=== PATIENT | female | born 1995 | race Caucasian/White ===

== ENCOUNTER 2019-08-20 12:33 | Emergency (ER) | payer SELFPAY ==
[2019-08-20 12:48] VITALS: BP 148/92; PULSE 92; RESP 16; TEMP 36.4; O2SAT 97
--- NOTE | 2019-08-20 12:56 | ED.URI ---
HPI - URI/Sore Throat General Chief Complaint: Upper Respiratory Infection Stated Complaint: cough and sore throat Time Seen by Provider: 08/20/19 13:04 Source: patient and RN notes reviewed History of Present Illness HPI Narrative: Patient is a 24-year-old female presents the urgent care with complaints of sore throat, headache, cough. Patient states her symptoms started 5 days ago and last night she developed a left ear pain. Patient denies any fever, chills, nausea, vomiting. Patient states that she is used Tylenol Cold and flu, Robitussin, Benadryl. No other acute complaints. No acute distress noted. Patient had a plan of care. Related Data Home Medications Medication Instructions Recorded Confirmed No Home Medications 08/20/19 08/20/19 Allergies Allergy/AdvReac Type Severity Reaction Status Date / Time No Known Allergies Allergy Unknown Verified 08/20/19 12:57 Review of Systems Review of Systems: Narrative: CONSTITUTIONAL: Denies fever, chills, or sweats. EYES: Denies visual changes, redness, or discharge. ENT: Reports of left otalgia, congestion, sore throat CARDIOVASCULAR: Denies chest pain, palpitations, or edema. RESPIRATORY: Reports of nonproductive cough without dyspnea GASTROINTESTINAL: Denies abdominal pain, nausea, vomiting, or diarrhea. GENITOURINARY: Denies dysuria or hematuria. SKIN: Denies rash or itching. MUSCULOSKELETAL: Denies back pain, joint pain, or myalgia. NEUROLOGIC: Reports of headaches PMFSH Comments At the time of my signature, I reviewed and agree with the nursing past medical, surgical, social, and family history. There is no relevant family history pertinent to the patient complaint. Exam Narrative: Exam Narrative: GENERAL: This is a well-nourished, well-developed patient, in no apparent distress. Poor hygiene HEAD: normocephalic, atraumatic. EYES: PERRL. Sclera clear/white. Vision is grossly intact. EARS: External ears normal, auditory canals clear and without drainage, TMs normal without perforation. Hearing grossly intact. NOSE: External nose normal with no obvious nasal discharge, nares without redness, no rhinorrhea. THROAT: Mucous membranes moist, mild erythema noted posterior pharynx with moderate postnasal drainage. NECK: Neck supple, non-tender without lymphadenopathy, masses or thyromegaly. CARDIOVASCULAR: Regular rate and rhythm without murmurs, gallops, or rubs. RESPIRATORY: Slight expiratory wheeze to left lower lobe, otherwise clear SKIN: warm, intact with no suspicious lesions or rash, good texture and turgor. NEURO: awake, alert, and oriented to person, place and time. There were no obvious focal neurologic abnormalities. EXTREMITIES: No clubbing, cyanosis, or edema. Course Vital Signs Vital signs: Vital Signs Temperature 97.5 F L 08/20/19 12:48 Pulse Rate 92 08/20/19 12:48 Respiratory Rate 16 08/20/19 12:48 Blood Pressure 148/92 H 08/20/19 12:48 Pulse Oximetry 97 08/20/19 12:48 Temperature 97.5 F L 08/20/19 12:48 Pulse Rate 92 08/20/19 12:48 Respiratory Rate 16 08/20/19 12:48 Blood Pressure 148/92 H 08/20/19 12:48 Pulse Oximetry 97 08/20/19 12:48 Reviewed?patient is informed that they may have pre-hypertension or hypertension based on a blood pressure reading in the department. I recommend the patient call the primary care provider listed on their discharge instructions or a physician of their choice this week to arrange follow-up for further evaluation of possible pre-hypertension or hypertension. MDM - URI/Sore Throat MDM Narrative Medical decision making narrative: Reviewed lab results with the patient. She is aware that strep swab was negative. Educated her on culture we will call within 72 hours if culture is positive and antibiotics are necessary. Advised patient to use Claritin and Flonase [id number] for postnasal drainage and symptom relief. Use Tylenol/ibuprofen as needed. Increase fluids and rest. Use humidifie
== END 2019-08-20 13:14 | disposition home or self-care (01) ==
PROVIDERS: Emergency Provider Nurse Practitioner Family; PCP Family Medicine
DX: J06.9 Acute upper respiratory infection, unspecified (principal)
CPT/HCPCS: 87081; 87880; 99213; G0463

== ENCOUNTER 2021-10-04 13:42 | Emergency (ER) | payer OTHER, SELFPAY ==
[2021-10-04 13:50] VITALS: BP 170/99; PULSE 98; RESP 14; TEMP 36.8; O2SAT 98
--- NOTE | 2021-10-04 13:53 | ED.URI ---
HPI - URI/Sore Throat General Chief Complaint: Upper Respiratory Infection Stated Complaint: Sore Throat/Congestion/Vomiting Time Seen by Provider: 10/04/21 13:54 Source: patient, RN notes reviewed and old records reviewed Mode of arrival: ambulatory Limitations: no limitations History of Present Illness HPI Narrative: 26 year old female who presents to [facility] care with complaints of 2 day history of sore throat with congestion and stuffy nose. Patient states that she also has some chills with no fever and some body aches. She reports that she has had some nausea and vomiting with diarrhea, denies any abdominal pain She states that she last vomited at 0400 t has shi several diarrhea stools today. She reports that she has been drinking well but not eating due to nausea. Patient has had COVID vaccinations X2 and also had COVID in June of 2021, has not had flu shot. MD elicited complaint: sore throat, nasal congestion and other (NVD) Onset (ago): day(s) (2) Able to tolerate fluids by mouth: Yes Exacerbating factors: swallowing Treatments prior to arrival: ibuprofen Related Data Allergies Allergy/AdvReac Type Severity Reaction Status Date / Time No Known Allergies Allergy Unknown Verified 10/04/21 13:57 Review of Systems Review of Systems: CONSTITUTIONAL: Denies fever,states some chills, no sweats. EYES: Denies visual changes, redness, or discharge. ENT: reports some rhinorrhea, congestion, sore throat, no otalgia. CARDIOVASCULAR: Denies chest pain, palpitations, or edema. RESPIRATORY: Denies cough or dyspnea. GASTROINTESTINAL: Denies abdominal pain, positive for nausea, vomiting, or diarrhea. GENITOURINARY: Denies dysuria or hematuria. SKIN: Denies rash or itching. MUSCULOSKELETAL: Denies back pain, joint pain, some body aches NEUROLOGIC: Denies headache, numbness, or weakness. PSYCHIATRIC:Positive for history of anxiety or depression. All systems reviewed & are unremarkable except as noted in HPI and below PMFSH Past Medical History Medical History (Updated 10/04/21 @ 21:21 by Janeth Flannery NP) Anxiety and depression Hyperprolactinemia Surgical History Surgical History (Updated 10/04/21 @ 14:03 by Janeth Flannery NP) Hx of cholecystectomy Social History Social History (Updated 03/16/22 @ 21:21 by Janeth Flannery NP) Smoking status: Never smoker Alcohol intake: current Alcohol use details: social Substance use type: does not use Living arrangements: with family Gender identity (if verbalized by the patient): Female Comments At time of signature, agree with nursing past medical, surgical, social and family history. There is no relevant family history pertinent to the presenting complaint Exam Narrative: GENERAL: Well-appearing, well-nourished,obese and in no acute distress. HEAD: Normocephalic, atraumatic. EYES: PERRLA and EOMI. ENT: Nares mild redness with clear rhinorrhea no epistaxis. Mucous membranes moist.TM's normal with good light reflex, throat red with no lesions or exudates, no tonsil enlargement noted. post nasal drainage noted NECK: Supple.No lymphadenopathy CHEST: Clear to auscultation. No respiratory distress.no tachypnea, SAO2 98% on room air HEART: Regular rate and rhythm. No murmur heard. Normal peripheral pulses. ABDOMEN: Soft, nontender, nondistended, normal active bowel sounds. some nausea vomiting and diarrhea EXTREMITIES: Normal range of motion. No edema. SKIN: Warm, dry, no rash. NEURO: No focal deficits. Alert and oriented x3. Course Course Level of Care: Express Care Visit Vital Signs Vital signs: Vital Signs Temperature 36.8 C 10/04/21 13:50 Pulse Rate 98 10/04/21 13:50 Respiratory Rate 14 10/04/21 13:50 Blood Pressure 170/99 H 10/04/21 13:50 Pulse Oximetry 98 10/04/21 13:50 Temperature 36.8 C 10/04/21 13:50 Pulse Rate 98 10/04/21 13:50 Respiratory Rate 14 10/04/21 13:50 Blood Pressure 170/99 H 10/04/21 13:50 Pulse Oximetr
== END 2021-10-04 14:44 | disposition home or self-care (01) ==
PROVIDERS: Emergency Provider Registered Nurse
DX: K52.9 Noninfective gastroenteritis and colitis, unspecified (principal); J06.9 Acute upper respiratory infection, unspecified
CPT/HCPCS: 87081; 87804; 87880; 99213; G0463

== ENCOUNTER 2022-02-28 09:56 | Outpatient (CLI) | payer OTHER, SELFPAY ==
[2022-02-28 10:21] LABS: Basophils Percent Auto 0.1 % (0.2-1.2); Eosinophils Absolute Auto 0.2 K/mm3 (0-0.3); Eosinophils Percent Auto 2.1 % (0-4.4); Hematocrit 41.5 % (37.0-47.0); Hemoglobin 13.4 g/dL (12.0-15.0); Immature Granulocyte Absolute 0.05 K/mm3 (0.00-0.031); Immature Granulocyte Percent A 0.5 % (0-0.5); Lymphocytes Absolute Auto 2.58 K/mm3 (0.9-3.2); Lymphocytes Percent Auto 26.2 % (18.3-44.2); Mean Corpuscular HGB Conc 32.3 g/dl (32-36); Mean Corpuscular Hemoglobin 29.8 pg (26-34); Mean Corpuscular Volume 92.2 fl (80-100); Mean Platelet Volume 8.9 fl (7.4-10.4); Monocytes Absolute Auto 0.4 K/mm3 (0.1-0.6); Monocytes Percent Auto 4.2 % (2.6-8.5); Neutrophils Absolute Auto 6.6 K/mm3 (1.3-6.7); Neutrophils Percent Auto 66.9 % (45.5-73.1); Platelet Count Result 234 k/mm3 (150-375); Red Cell Distribution Width 13.6 % (11.5-14.5); White Blood Count 9.9 K/mm3 (4.5-10.0)
[2022-02-28 10:31] LABS: Cholesterol 225 mg/dL (0-200); HDL Direct 25 mg/dL; Triglycerides 235 mg/dL (<150)
[2022-02-28 10:38] LABS: Hemoglobin A1C 5.8 % (<5.7)
[2022-02-28 10:42] LABS: LDL Cholesterol Direct 157 mg/dL
[2022-02-28 10:50] LABS: Beta HCG Quantitative < 2.39 mIU/ML
[2022-03-03 07:47] LABS: Progesterone 0.3 ng/mL (***); Prolactin 55.4 ng/mL (***)
[2022-03-03 13:57] LABS: DHEA-Sulfate 122 mcg/dL (18-391)
[2022-03-05 17:33] LABS: Testosterone Total 12 ng/dL (2-45)
[2022-03-09 23:12] LABS: Estradiol, Ultrasensitive 15 pg/mL
== END 2022-02-28 09:57 | disposition home or self-care (01) ==
LOC: ANHLAB 10:01
PROVIDERS: Visit Provider Obstetrics & Gynecology
DX: L68.0 Hirsutism (principal); N92.6 Irregular menstruation, unspecified
CPT/HCPCS: 36415; 80061; 82627; 82670; 83036; 83498; 84144; 84146; 84402; 84403; 84702; 85025

== ENCOUNTER → 2022-03-13 12:45 | Outpatient (CLI) | payer OTHER, SELFPAY ==
--- NOTE | ~2022-03-13 | US_ITS ---
EXAMINATION: US pelvic complete w TV DATE: 03/13/2022 13:29 INDICATION: Left ovarian cyst TECHNIQUE: Multiple transabdominal and endovaginal sonographic images of the pelvis were obtained. COMPARISON: None. FINDINGS: The uterus measures 8.7 x 3.7 x 4.6 cm. The endometrial complex measures 5 mm. The right ov damien measures 5.4 x 3.0 x 5.3 cm. There is a 2.5 cm simple cyst of the right ovary. There is a 2.5 cm hypoechoic lesion of the right ovary. The left ovary measures 3.5 x 2.5 x 2.5 cm. There is a 2.5 cm h ypoechoic lesion of the left ovary. There is normal vascular flow in the ovaries. There is no free fl uid in the pelvis. IMPRESSION: 1. Probably benign bilateral ovarian lesions. Follow-up ultrasound in 8-12 weeks is recommended. Reviewed, dictated and finalized at location B. IMPRESSION: 1. Probably benign bilateral ovarian lesions. Follow-up ultrasound in 8-12 week s is recommended.
== END ==
LOC: EXPGOSHRAD 12:50
PROVIDERS: Visit Provider Obstetrics & Gynecology
DX: N83.292 Other ovarian cyst, left side (principal)
CPT/HCPCS: 76830; 76856

== ENCOUNTER 2022-04-27 15:17 | Emergency (ER) | payer OTHER, SELFPAY ==
--- NOTE | 2022-04-27 15:21 | ED.URI ---
HPI - URI/Sore Throat General Chief Complaint: Upper Respiratory Infection Stated Complaint: Sore Throat/Fever Time Seen by Provider: 04/27/22 15:21 Source: patient and RN notes reviewed History of Present Illness HPI Narrative: Patient is a 27-year-old female who presents the urgent care with complaints of sore throat and fever for 1 week. Patient states that she has been taking Tylenol and her son diagnosed with strep this week. Denies any cough or other upper respiratory complaints. Denies of any nausea or vomiting. No other acute complaints. No acute distress noted. Patient aware of the plan of care. Some parts of this dictation were generated by voice recognition software and may contain typographical and/or grammatical inaccuracies. Related Data Home Medications Medication Instructions Recorded Confirmed lisinopril 10 mg tablet 10 mg PO DAILY 02/20/22 sertraline 50 mg tablet (Zoloft) 50 mg PO DAILY 02/20/22 Allergies Allergy/AdvReac Type Severity Reaction Status Date / Time No Known Allergies Allergy Unknown Verified 04/27/22 15:39 Review of Systems Review of Systems: CONSTITUTIONAL: Reports a fever EYES: Denies visual changes, redness, or discharge. ENT: Denies rhinorrhea, congestion, otalgia. Reports of sore throat CARDIOVASCULAR: Denies chest pain, palpitations, or edema. RESPIRATORY: Denies cough or dyspnea. GASTROINTESTINAL: Denies abdominal pain, nausea, vomiting, or diarrhea. GENITOURINARY: Denies dysuria or hematuria. SKIN: Denies rash or itching. MUSCULOSKELETAL: Denies back pain, joint pain, or myalgia. NEUROLOGIC: Denies headache, numbness, or weakness. All other systems reviewed are negative, except as documented in HPI. [facility] Past Medical History Medical History Anxiety and depression Hyperprolactinemia Surgical History Surgical History Hx of cholecystectomy Social History Social History (Updated 02/20/22 @ 13:59 by Maira Chance MA) Smoking status: Never smoker Alcohol intake: never Substance use: never Substance use type: does not use Gender identity (if verbalized by the patient): Female Sexual Orientation (if Verbalized by the Patient): Straight or Heterosexual Comments At the time of my signature, I reviewed and agree with the nursing past medical, surgical, social, and family history. There is no relevant family history pertinent to the patient complaint. Exam Narrative: GENERAL: This is a well-nourished, well-developed patient, in no apparent distress. HEAD: normocephalic, atraumatic. EYES: PERRL. Sclera clear/white. Vision is grossly intact. EARS: External ears normal, auditory canals clear and without drainage, TMs normal without perforation. Hearing grossly intact. NOSE: External nose normal with no obvious nasal discharge, nares without redness, no rhinorrhea. THROAT: Mucous membranes moist, moderate erythema noted posterior pharynx without tonsillar edema or exudate. Moderate postnasal drainage NECK: Neck supple, non-tender without lymphadenopathy CARDIOVASCULAR: Regular rate and rhythm without murmurs, gallops, or rubs. RESPIRATORY: Clear to auscultation. Breath sounds equal bilaterally. No wheezes, rales, or rhonchi. SKIN: warm, intact with no suspicious lesions or rash, good texture and turgor. NEURO: awake, alert, and oriented to person, place and time. There were no obvious focal neurologic abnormalities. EXTREMITIES: No clubbing, cyanosis, or edema. Course Course Level of Care: Express Care Visit Vital Signs Vital signs: Vital Signs Temperature 97.5 F L 04/27/22 15:25 Pulse Rate 94 04/27/22 15:25 Respiratory Rate 18 04/27/22 15:25 Blood Pressure 173/81 H 04/27/22 15:25 Pulse Oximetry 98 04/27/22 15:25 Oxygen Delivery Room Air 04/27/22 15:25 Temperature 97.5 F L 04/27/22 15:25 Pulse Rate 94 04/27/22 15:25 Re
[2022-04-27 15:25] VITALS: BP 173/81; PULSE 94; RESP 18; TEMP 36.4; O2SAT 98
== END 2022-04-27 15:50 | disposition home or self-care (01) ==
PROVIDERS: Emergency Provider Nurse Practitioner Family
DX: J02.9 Acute pharyngitis, unspecified (principal); E22.1 Hyperprolactinemia; F41.9 Anxiety disorder, unspecified; F32.A Depression, unspecified
CPT/HCPCS: 87081; 87880; 99213; G0463

== ENCOUNTER 2023-02-04 07:47 | Outpatient (CLI) | payer OTHER, SELFPAY ==
[2023-02-04 08:40] LABS: Basophils Percent Auto 0.3 % (0.2-1.2); Eosinophils Absolute Auto 0.2 K/mm3 (0-0.3); Eosinophils Percent Auto 1.7 % (0-4.4); Hematocrit 40.2 % (37.0-47.0); Immature Granulocyte Absolute 0.02 K/mm3 (0.00-0.031); Immature Granulocyte Percent A 0.2 % (0-0.5); Lymphocytes Absolute Auto 2.26 K/mm3 (0.9-3.2); Lymphocytes Percent Auto 26.3 % (18.3-44.2); Mean Corpuscular HGB Conc 32.3 g/dl (32-36); Mean Corpuscular Volume 89.5 fl (80-100); Mean Platelet Volume 8.7 fl (7.4-10.4); Monocytes Absolute Auto 0.4 K/mm3 (0.1-0.6); Monocytes Percent Auto 4.5 % (2.6-8.5); Neutrophils Absolute Auto 5.7 K/mm3 (1.3-6.7); Platelet Count Result 226 k/mm3 (150-375); Red Blood Count 4.49 M/mm3 (4.2-5.4); Red Cell Distribution Width 13.9 % (11.5-14.5); White Blood Count 8.6 K/mm3 (4.5-10.0)
[2023-02-04 08:49] LABS: Cholesterol 228 mg/dL (0-200); HDL Direct 29 mg/dL; Triglycerides 358 mg/dL (<150)
[2023-02-04 08:51] LABS: Hemoglobin A1C 5.6 % (<5.7)
[2023-02-04 09:02] LABS: LDL Cholesterol Direct 135 mg/dL
[2023-02-04 09:04] LABS: Iron 82 ug/dL (37-170)
[2023-02-04 09:06] LABS: Beta HCG Quantitative < 2.39 mIU/ML
[2023-02-04 09:13] LABS: Percent Iron Saturation 19 % (20-50)
[2023-02-07 14:30] LABS: DHEA-Sulfate 124 mcg/dL (18-391); Insulin Level Total 28.1 uIU/mL (<=19.6)
[2023-02-08 06:41] LABS: FSH 4.3 mIU/mL (***)
[2023-02-08 06:54] LABS: Progesterone 0.2 ng/mL (***); Prolactin 35.5 ng/mL (***)
[2023-02-08 15:01] LABS: Testosterone Free 1.2 pg/mL (0.1-6.4); Testosterone Total 9 ng/dL (2-45)
[2023-02-09 08:14] LABS: Estradiol, Ultrasensitive 9 pg/mL
[2023-02-12 07:30] LABS: Free Insulin 29.8
== END 2023-02-04 07:48 | disposition home or self-care (01) ==
LOC: ANHLAB 07:50
PROVIDERS: Visit Provider Obstetrics & Gynecology
DX: N92.6 Irregular menstruation, unspecified (principal); L68.0 Hirsutism; E66.01 Morbid (severe) obesity due to excess calories; Z68.43 Body mass index [BMI] 50.0-59.9, adult
CPT/HCPCS: 36415; 80061; 82627; 82670; 83001; 83036; 83498; 83525; 83527; 83540; 83550; 84144; 84146; 84402; 84403; 84443; 84702; 85025

== ENCOUNTER 2023-05-01 17:28 | Emergency (ER) | payer OTHER, SELFPAY ==
[2023-05-01 17:33] VITALS: BP 153/55; PULSE 93; RESP 16; TEMP 36.7; O2SAT 97
--- NOTE | 2023-05-01 17:41 | ED.URI ---
HPI - URI/Sore Throat General Chief Complaint: Upper Respiratory Infection Stated Complaint: throat/nausea/headache History of Present Illness HPI Narrative: 28-year-old female presented for complaint of sore throat, nausea/vomiting, sinus congestion and headache since yesterday. Endorses daughter tested positive for strep throat today.Not taking anything for symptoms. Denies shortness breath, wheezing, or fever. Related Data Home Medications Medication Instructions Recorded Confirmed escitalopram oxalate 20 mg tablet 20 mg PO DAILY 05/01/23 05/01/23 lisinopril 20 mg tablet 20 mg PO DAILY 05/01/23 05/01/23 metformin 500 mg tablet,extended 500 mg PO DAILY 05/01/23 05/01/23 release 24 hr Allergies Allergy/AdvReac Type Severity Reaction Status Date / Time No Known Allergies Allergy Unknown Verified 05/01/23 17:48 Review of Systems Review of Systems: CONSTITUTIONAL: Denies body aches, fever, chills, or sweats. EYES: Denies visual changes, redness, or discharge. ENT: Reports rhinorrhea, congestion, sore throat. CARDIOVASCULAR: Denies chest pain, palpitations, or edema. RESPIRATORY: Denies dyspnea. GASTROINTESTINAL: Reports nausea, vomiting, Denies abdominal pain, or diarrhea. SKIN: Denies rash, itching, or wounds. MUSCULOSKELETAL: Denies back pain, joint pain, or myalgia. [facility] Past Medical History Medical History Anxiety and depression Hyperprolactinemia Surgical History Surgical History Hx of cholecystectomy Social History Social History Smoking status: Never smoker Alcohol intake: never Substance use: never Substance use type: does not use Lack of Transportation: No Lack of Food: Never True Current Housing: I Have Housing Concerned About Future Housing: No Difficulty Paying Gas/Electric Bills: No Difficulty Paying for Meds: No Currently Unemployed: No Education: High School Diploma/GED Living arrangements: with family Occupation/Education: occupation 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 EYES: conjunctivae clear ENT: Mucous membranes moist. TM pearly joya with normal light reflex bilaterally; no tragal tenderness. Oropharynx erythematous Tonsils enlarged 3+ without exudate. No drooling, no hoarseness, no trismus, uvula midline. No tripod positioning, hot potato voice, or soft palate swelling. NECK: Supple. No lymphadenopathy CHEST: Clear to auscultation, breath sounds equal. No respiratory distress, speaks in full sentences. HEART: Regular rate and rhythm. No murmur heard. SKIN: Warm, dry, no rash. NEURO: Alert and oriented x3. Course Course Emergency Course: Patient is aware of diagnosis, understands and agrees to treatment plan. Anticipatory guidance given. Patient agrees to follow-up as directed and is aware of reasons to seek care at the emergency department. Portions of this record may have been created with voice recognition software Level of Care: Express Care Visit Vital Signs Vital signs: Vital Signs Temperature 98.1 F 05/01/23 17:33 Pulse Rate 93 05/01/23 17:33 Respiratory Rate 16 05/01/23 17:33 Blood Pressure 153/55 H 05/01/23 17:33 Pulse Oximetry 97 05/01/23 17:33 Oxygen Delivery Room Air 05/01/23 17:33 Temperature 98.1 F 05/01/23 17:33 Pulse Rate 93 05/01/23 17:33 Respiratory Rate 16 05/01/23 17:33 Blood Pressure 153/55 H 05/01/23 17:33 Pulse Oximetry 97 05/01/23 17:33 Oxygen Delivery Room Air 05/01/23 17:33 MDM - URI/Sore Throat MDM Narrative Medical decision making narrative: POS s
== END 2023-05-01 18:00 | disposition home or self-care (01) ==
PROVIDERS: Emergency Provider Nurse Practitioner Family
DX: J02.0 Streptococcal pharyngitis (principal); Z79.899 Other long term (current) drug therapy; Z79.84 Long term (current) use of oral hypoglycemic drugs
CPT/HCPCS: 87880; 99213; G0463

== ENCOUNTER 2023-07-17 09:01 | Emergency (ER) | payer OTHER, SELFPAY ==
--- NOTE | 2023-07-17 09:11 | ED.URI ---
HPI - URI/Sore Throat General Chief Complaint: Upper Respiratory Infection Stated Complaint: Sore Throat/Ears Irritation Time Seen by Provider: 07/17/23 09:33 Source: patient and RN notes reviewed Mode of arrival: ambulatory Limitations: no limitations History of Present Illness HPI Narrative: 28 year old female presents with concern for sore throat for 2-3 days. She reports ear fullness, headaches, vomiting. She reports she has been taking ibuprofen and Tylenol MD elicited complaint: sore throat Related Data Home Medications Medication Instructions Recorded Confirmed escitalopram oxalate 20 mg tablet 20 mg PO DAILY 05/01/23 07/17/23 lisinopril 20 mg tablet 20 mg PO DAILY 05/01/23 07/17/23 metformin 500 mg tablet,extended 500 mg PO DAILY 05/01/23 07/17/23 release 24 hr Allergies Allergy/AdvReac Type Severity Reaction Status Date / Time No Known Allergies Allergy Unknown Verified 07/17/23 09:21 Review of Systems Review of Systems: CONSTITUTIONAL: Reports malaise, chills EYES: Denies visual changes, redness, or discharge. ENT: Denies rhinorrhea, congestion, sinus pain. Reports otalgia and sore throat. CARDIOVASCULAR: Denies chest pain, palpitations, or edema. RESPIRATORY: Denies cough. Denies dyspnea. GASTROINTESTINAL: Denies abdominal pain, diarrhea. Reports nausea, vomiting SKIN: Denies rash or itching. MUSCULOSKELETAL: Reports myalgia. NEUROLOGIC: Reports headache. All systems reviewed & are unremarkable except as noted in HPI and below PMFSH Past Medical History Medical History Anxiety and depression Hyperprolactinemia Surgical History Surgical History Hx of cholecystectomy Social History Social History Smoking status: Never smoker Alcohol intake: never Substance use: never Substance use type: does not use Lack of Transportation: No Lack of Food: Never True Current Housing: I Have Housing Concerned About Future Housing: No Difficulty Paying Gas/Electric Bills: No Difficulty Paying for Meds: No Currently Unemployed: No Education: High School Diploma/GED Living arrangements: with family Occupation/Education: occupation 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 There is no relevant family history pertinent to the presenting complaint Exam Narrative: GENERAL: Nontoxic-appearing, well-nourished, and in no acute distress. HEAD: Normocephalic EYES: PERRLA, conjunctivae clear ENT: Nares clear, turbinates edematous and erythematous, clear discharge. Mucous membranes moist. TM pearly joya with dull light reflex bilaterally; no tragal tenderness. Oropharynx erythematous without lesions. Tonsils not enlarged and without exudate, no drooling, no hoarseness, no trismus, uvula midline. NECK: Supple. No lymphadenopathy CHEST: Clear to auscultation, breath sounds equal. No wheezing, rhonchi, rales, or stridor. No respiratory distress, speaks in full sentences. HEART: Regular rate and rhythm. No murmur heard. SKIN: Warm, dry, no rash. NEURO: Alert and oriented x3. PSYCH: Normal mood and affect Course Course Emergency Course: Patient is aware of diagnosis, understands and agrees to treatment plan. Anticipatory guidance given. Patient agrees to follow-up as directed and is aware of reasons to seek care at the emergency department. Portions of this record may have been created with voice recognition software Level of Care: Express Care Visit Vital Signs Vital signs: Reviewed. MDM - URI/Sore Throat MDM Narrative Medical decision making narrative
[2023-07-17 09:18] VITALS: BP 122/84; PULSE 106; RESP 18; TEMP 36.5; O2SAT 97
== END 2023-07-17 09:49 | disposition home or self-care (01) ==
PROVIDERS: Emergency Provider Nurse Practitioner
DX: J02.0 Streptococcal pharyngitis (principal); Z20.822 Contact with and (suspected) exposure to COVID-19; F41.9 Anxiety disorder, unspecified; F32.A Depression, unspecified
CPT/HCPCS: 87426; 87804; 87880; 99213; C9803; G0463